=== PATIENT | female | born 1965 | race Caucasian/White ===

== ENCOUNTER → 2019-07-30 | Outpatient (CLI) | payer BC ==
[~2019-07-30] MED LIST: HCTZ 25MG TAB25 MG PO; ILOTYCIN5 MG/GM OP; LEVEMIR SQ; LIPITOR 40MG TA40 MG PO; NOVLOG SQ; PREDNISONE10 MG PO; TRICOR145 MG PO; ZESTRIL 20MG TA20 MG PO
== END ==
LOC: MC.RAD 13:05
DX: Z12.31 Encounter for screening mammogram for malignant neoplasm of breast (principal)

== ENCOUNTER → 2020-01-12 | Outpatient (CLI) | payer BC | LOC: ZCOL.LAB 07:54 | DX: J02.9 Acute pharyngitis, unspecified (principal); R06.02 Shortness of breath; Z20.828 Contact with and (suspected) exposure to other viral communicable diseases ==